=== PATIENT | female | born 1975 | race Caucasian/White ===

== ENCOUNTER → 2018-10-30 | Outpatient (CLI) | payer MEDICAID ==
[~2018-10-30] MED LIST: HYDR-3240 PO; IBUP-1222 PO; METO25TA35 PO; provera INJ
== END | disposition home or self-care (01) ==
LOC: CFH 10:05
PROVIDERS: ATTEND Genetic Counselor, MS
DX: Z12.31 Encounter for screening mammogram for malignant neoplasm of breast (principal)
CPT/HCPCS: 77063; 77067

== ENCOUNTER 2019-08-07 10:12 | Outpatient (CLI) | payer MEDICAID ==
[2019-08-07] MEDS ORDERED: HYDR25CA PO (10:42)
[2019-08-07] MEDS ORDERED: lithium PO (10:42)
[2019-08-07] MEDS ORDERED: GABA100C PO (10:42)
[2019-08-07] MEDS ORDERED: LITH150C PO (10:58)
[2019-08-07] MEDS ORDERED: IBUP-1223 PO (10:58)
== END 2019-08-07 23:59 | disposition home or self-care (01) ==
LOC: STAR 10:12
PROVIDERS: ATTEND Obstetrics & Gynecology Female Pelvic Medicine and Reconstructive Surgery
DX: Z01.810 Encounter for preprocedural cardiovascular examination (principal); N94.6 Dysmenorrhea, unspecified; N92.6 Irregular menstruation, unspecified; N39.3 Stress incontinence (female) (male)
CPT/HCPCS: 93005

== ENCOUNTER 2019-08-17 10:25 | Day surgery (SDC) | payer MEDICAID ==
[~2019-08-17] VITALS: Ht 162.6 cm; Wt 69.9 kg
[~2019-08-17 10:25] MED LIST changes: +BUPIVACAINE/PF 0.25% ONE; +EPINEPHRINE 1 MG/ML, 1ML ONE; +GABA100C PO; +HYDR25CA PO; +IBUP-1223 PO; +LITH150C PO; +NEOMY/POLYMYXIN B GU IRR. 1 ML ONE; +lithium PO
[2019-08-17] MEDS ORDERED: LACTATED RINGERS 1,000 ML IV SCH ×2 (10:52→19:25)
[2019-08-17] MEDS: SCOPOLAMINE 1MG PATCH TD SCH ×2 (11:00→11:33)
[2019-08-17] MEDS ORDERED: GABAPENTIN 300 MG CAPSULE PO ONE (11:00)
[2019-08-17] MEDS ORDERED: ACETAMINOPHEN 500 MG TABLET PO ONE (11:00)
[2019-08-17] MEDS ORDERED: GABA300C10 PO (11:21)
[2019-08-17] MEDS ORDERED: MONT10TA11 PO (11:21)
[2019-08-17] MEDS ORDERED: PRAZ5CAP2 PO (11:21)
[2019-08-17] MEDS ORDERED: TRAZ-175 PO (11:21)
[2019-08-17] MEDS ORDERED: LITH300C PO (11:21)
[2019-08-17] MEDS ORDERED: HYDR-2995 PO (11:21)
[2019-08-17] MEDS ORDERED: PROP10TA16 PO (11:21)
[2019-08-17 11:44] LABS: HCG UR SG 1.024 (1.003-1.030)
[2019-08-17] MEDS ORDERED: MIDAZOLAM 1 MG/ML, 2ML ONE (14:53)
[2019-08-17] MEDS ORDERED: FENTANYL PF 250 MCG/5ML ONE (14:53)
[2019-08-17] MEDS ORDERED: MEPERIDINE/PF 25MG/ML,1ML IVPush PRN (15:00)
[2019-08-17] MEDS ORDERED: PROMETHAZINE 25 MG/ML, 1ML IV PRN (15:00)
[2019-08-17] MEDS ORDERED: LABETALOL 5MG/ML, 20ML IV PRN (15:00)
[2019-08-17] MEDS ORDERED: hydrALAzine 20 MG/ML, 1ML IV PRN (15:00)
[2019-08-17] MEDS ORDERED: OXYcodone 5 MG/5 ML ORAL.SOL UDC PO PRN (15:00)
[2019-08-17] MEDS ORDERED: HALOPERIDOL 5 MG/ML IV PRN (15:00)
[2019-08-17] MEDS ORDERED: SUCCINYLCHOLINE 20 MG/ML, 10ML ONE (16:28)
[2019-08-17] MEDS ORDERED: ROCURONIUM 10MG/ML,5ML ONE (16:28)
[2019-08-17] MEDS ORDERED: DEXAMETHASONE 4 MG/ML, 1ML ONE (16:28)
[2019-08-17] MEDS ORDERED: ONDANSETRON 2MG/ML, 2ML ONE (16:28)
[2019-08-17] MEDS ORDERED: NEOSTIGMINE 1 MG/ML, 10ML ONE (16:28)
[2019-08-17] MEDS ORDERED: CEFAZOLIN 1,000 MG ONE (16:28)
[2019-08-17] MEDS ORDERED: PROPOFOL 10 MG/ML, 20ML ONE (16:28)
[2019-08-17] MEDS ORDERED: GLYCOPYRROLATE 0.2MG/1ML, 5ML ONE (16:28)
[2019-08-17] MEDS ORDERED: OXYcodone 5 MG/5 ML ORAL.SOL UDC ONE (16:45)
[2019-08-17] MEDS ORDERED: FENTANYL PF 100 MCG/2ML ONE (16:45)
[2019-08-17] MEDS: FENTANYL PF 100 MCG/2ML IV PRN ×2 (16:50→17:00)
[2019-08-17] MEDS ORDERED: HYDROmorphone 1 MG/ML, 1ML INJ ONE ×2 (17:10→18:01)
[2019-08-17] MEDS: HYDROmorphone 2 MG/ML, 1ML IVPush PRN ×4 (17:11→18:10)
[2019-08-17] MEDS ORDERED: KETOROLAC 30 MG/1 ML ONE (17:21)
[2019-08-17] MEDS ORDERED: MEPERIDINE/PF 25MG/ML,1ML ONE (17:21)
[2019-08-17] MEDS ORDERED: KETOROLAC 30 MG/1 ML IVPush PRN (17:30)
[2019-08-17] MEDS ORDERED: TRAZODONE 50MG TABLET PO PRN (19:30)
[2019-08-17] MEDS ORDERED: ONDANSETRON 2MG/ML, 2ML IV PRN (19:30)
[2019-08-17] MEDS ORDERED: PROPRANOLOL MC SCH (19:30)
[2019-08-17] MEDS ORDERED: HYDROmorphone 1 MG/ML, 1ML INJ IV PRN (19:30)
[2019-08-17] MEDS ORDERED: OXYcodone/APAP 5/325MG TABLET PO PRN (19:30)
[2019-08-17] MEDS ORDERED: IBUPROFEN 600 MG TABLET PO PRN (19:30)
[2019-08-17] MEDS ORDERED: MONTELUKAST 10 MG TABLET PO SCH (21:00)
[2019-08-17] MEDS ORDERED: LITHIUM CARBONATE 300 MG CAPSULE PO SCH (21:00)
[2019-08-17] MEDS ORDERED: hydrOXyzine 10MG TABLET PO SCH (21:00)
[2019-08-17] MEDS ORDERED: GABAPENTIN 300 MG CAPSULE PO SCH (21:00)
[2019-08-17] MEDS ORDERED: PRAZOSIN 5 MG CAPSULE PO SCH (21:00)
== END 2019-08-17 20:45 | disposition home or self-care (01) ==
LOC: OUT 10:25 → 4NE 18:43 → OUT 20:45
PROVIDERS: ATTEND Obstetrics & Gynecology Female Pelvic Medicine and Reconstructive Surgery
DX: N81.2 Incomplete uterovaginal prolapse (principal); D25.2 Subserosal leiomyoma of uterus; N39.46 Mixed incontinence; N94.6 Dysmenorrhea, unspecified; N94.10 Unspecified dyspareunia; R10.2 Pelvic and perineal pain; M21.371 Foot drop, right foot; F41.9 Anxiety disorder, unspecified; I10 Essential (primary) hypertension; M19.90 Unspecified osteoarthritis, unspecified site; I25.2 Old myocardial infarction; I47.1 Supraventricular tachycardia; Z79.899 Other long term (current) drug therapy; Z86.73 Personal history of transient ischemic attack (TIA), and cerebral infarction without residual deficits; Z88.1 Allergy status to other antibiotic agents; Z88.2 Allergy status to sulfonamides; Z98.51 Tubal ligation status; Z98.890 Other specified postprocedural states
CPT/HCPCS: 57265; 57288; 58552; 81025; 88307; C1771; J0171; J0330; J0690; J1100; J1170; J1885; J2175; J2250; J2405; J2704; J2710; J3010; J3490; J7120; G0378